=== PATIENT | female | born 1955 | race Caucasian/White ===

== ENCOUNTER 2017-03-04 09:18 | Day surgery (SDC) | payer OTHER ==
[~2017-03-04] VITALS: Ht 149.9 cm; Wt 131.1 kg
[2017-03-04 09:53] VITALS: Ht 149.9 cm; Wt 131.1 kg
[2017-03-04] MEDS ORDERED: OMEP20CA16 PO (10:07)
[2017-03-04] MEDS ORDERED: BENA20TA48 PO ×2 (10:07)
[2017-03-04] MEDS ORDERED: ATOR20TA38 PO (10:07)
[2017-03-04] MEDS ORDERED: ASPI-664 PO (10:07)
[2017-03-04] MEDS ORDERED: METF500T4 PO (10:07)
[2017-03-04] MEDS ORDERED: METO-429 PO (10:07)
[2017-03-04 10:25] VITALS: BP 119/63; PULSE 78; RESP 13
[2017-03-04] MEDS ORDERED: PROPOFOL 100 ML ONE (11:54)
--- NOTE | 2017-03-04 12:29 | GILP ---
DATE OF PROCEDURE: 03/04/2017 NAME OF PROCEDURES: Colonoscopy and biopsy. SURGEON: Melissa Azevedo MD PREOPERATIVE DIAGNOSIS: Screening colonoscopy. POSTOPERATIVE DIAGNOSES: 1. Colonoscopy all the way to the cecum. 2. Multiple right colon polyps were removed using the biopsy forceps. 3. Flat polyp from the sigmoid colon was removed using the biopsy forceps. 4. Diverticulosis of the colon. 5. Internal hemorrhoids. INDICATION FOR THE PROCEDURE: Ms. Leilani Sethi is a 62-year-old female patient who was zackery eduled for screening colonoscopy. The procedure and possible complications are well explained to the patient, she understood and conse nted to the procedure. DESCRIPTION OF PROCEDURE: Under the influence of anesthesia, the colonoscope was carefully introduc ed in the rectum and under direct vision, it was advanced all the way to the cecum. FINDINGS: The patient had multiple small polyps in the right colon and they were removed using the biopsy forceps. The patient was noted to have a flat polyp in the sigmoid and it was also removed u sing the biopsy forceps. She had diverticulosis of the colon and internal hemorrhoids. She tolerated the procedure very well and there was no complication from the procedure. At the end of the procedure, she was awake with stable vital signs and she was discharged home to the care of h er family. IMPRESSION: 1. Colonoscopy all the way to the cecum. 2. Multiple right colon polyps were removed using the biopsy forceps. 3. Flat sigmoid colon polyp was removed using the biopsy forceps. 4. Diverticulosis of the colon. 5. Internal hemorrhoids. PLAN: Await histopathology report. Because of the multiple colon polyps she had, would recommend n ext screening colonoscopy in 3 years. Dictated By: MELISSA AZEVEDO MD GD/NTS Conf#: [id number] DID#: [id number] CC: MELISSA ZAEVEDO MD;*EndCC*
[2017-03-04 12:31] VITALS: BP 116/75; PULSE 74; RESP 15
== END 2017-03-04 12:38 | disposition home or self-care (01) ==
LOC: GIL 09:18
PROVIDERS: ATTEND Internal Medicine Gastroenterology
DX: Z12.11 Encounter for screening for malignant neoplasm of colon (principal); D12.5 Benign neoplasm of sigmoid colon; K64.8 Other hemorrhoids; K57.90 Diverticulosis of intestine, part unspecified, without perforation or abscess without bleeding; E11.9 Type 2 diabetes mellitus without complications; I10 Essential (primary) hypertension; E78.5 Hyperlipidemia, unspecified; E66.01 Morbid (severe) obesity due to excess calories; Z68.43 Body mass index [BMI] 50.0-59.9, adult
CPT/HCPCS: 45380; 82962; 88305; Z7610